=== PATIENT | female | born 1980 | race Two or more races ===

== ENCOUNTER → 2024-04-23 09:01 | Outpatient (REF) | payer OTHER, SELFPAY ==
[2024-04-23 10:47] LABS: Estradiol 86.8 pg/ml
== END ==
LOC: REG 09:01
PROVIDERS: FAMILY PHYSICIAN Internal Medicine
DX: Z31.83 Encounter for assisted reproductive fertility procedure cycle (principal)
CPT/HCPCS: 36415; 82670; 84144; 84702

== ENCOUNTER → 2024-04-29 06:26 | Outpatient (REF) | payer OTHER, SELFPAY ==
[2024-04-29 08:00] LABS: Estradiol 78.8 pg/ml
== END ==
LOC: REG 06:26
PROVIDERS: FAMILY PHYSICIAN Internal Medicine
DX: Z31.83 Encounter for assisted reproductive fertility procedure cycle (principal)
CPT/HCPCS: 36415; 82670; 84144; 84702

== ENCOUNTER → 2025-01-09 15:21 | Outpatient (REF) | payer OTHER, SELFPAY | LOC: WDC 15:21 | PROVIDERS: ATTENDING PHYSICIAN Family Medicine | DX: Z12.31 Encounter for screening mammogram for malignant neoplasm of breast (principal) | CPT/HCPCS: 77063; 77067 ==

== ENCOUNTER 2025-01-20 11:02 | Emergency (ER) | payer OTHER, SELFPAY ==
[2025-01-20 11:06] VITALS: BP 134/90
[2025-01-20 11:49] LABS: % Eosinophils 0.6 % (0-6); % Immature Granulocytes 0.2 % (0-0.5); % Lymphocytes 37.1 % (20.5-51.1); % Monocytes 4.4 % (1.7-9.3); % Neutrophils 56.7 % (42.2-75.2); Absolute Basophils 0.1 10^3/uL (0-0.2); Absolute Lymphocytes 1.9 10^3/uL (1.2-3.4); Absolute Monocytes 0.2 10^3/uL (0.1-0.6); Hematocrit 39.9 % (37.0-47.0); Hemoglobin 13.7 g/dL (12.0-16.0); Mean Corp Hgb Conc. 34.3 g/dL (33.0-37.0); Mean Corpuscular Hgb 30.2 pg (27.0-31.0); Mean Corpuscular Volume 87.9 fL (81.0-99.0); Mean Platelet Volume 8.9 fL (7.4-10.4); Nucleated Red Blood Cells % 0 %; Platelet Count 284 10^3/uL (130-400); Red Blood Cell Count 4.54 10^6/uL (4.20-5.40); Red Cell Dist. Width 12.5 % (11.5-14.5); White Blood Cell Count 5.2 10^3/uL (4.8-10.8)
[2025-01-20 12:05] LABS: HCG, Serum Qualitative Screen Negative
[2025-01-20 12:10] LABS: ALT (SGPT) 18 U/L (0-35); AST (SGOT) 21 U/L (14-36); Albumin 5.2 g/dl (3.5-5.0); Alkaline Phosphatase 54 U/L (38-126); Blood Urea Nitrogen 13 mg/dl (7-17); Calcium 9.7 mg/dl (8.4-10.2); Carbon Dioxide 19 mmol/L (22-30); Chloride 105 mmol/L (98-107); Glucose 172 mg/dl (70-99); Potassium 4.8 mmol/L (3.5-5.1); Sodium 136 mmol/L (135-145); Total Bilirubin 0.9 mg/dl (0.2-1.3); Total Protein 8.3 g/dl (6.3-8.2); eGFR > 60.00
--- NOTE | 2025-01-20 12:46 | ED.GENMED ---
History of Present Illness
General
Chief Complaint: Numbness
Source: patient
Time Seen by Provider: 01/20/25 12:16
History of Present Illness
History of Present Illness:
This patient is a 44-year-old female presents emergency department from the staff auditor office. She states that she has been having intermittent episodes of dermatitis/eczema, waxing and waning, usually relieved with steroids. She was seeing the
staff auditor to have this worked up. She states that around 10:30 AM she received a panel of different antigens placed on her back. As she lay prone, about 15 minutes later she developed a 'strange sensation' on the right side of her face as well as
her right arm and less so on the left arm. She said it felt a little bit like 'Novocain'. This then started to make her feel anxious. She noted that her mouth felt dry and had a 'weird taste'. She is feeling better now although symptoms are not
fully resolved. She denies associated change in speech, lip or tongue swelling, trouble swallowing, chest pain, dyspnea, vomiting. She did have slight nausea which she thinks was related to the anxiety, lasting about a minute and then fully
resolved. Patient has never had an experience like this before.
Past History
Past History
ED Past Medical History: Other (Migraines)
Social History
Tobacco: Non-smoker
Alcohol: Occasional
Drug: None
Phy Exam
Physical Exam
Physical Exam:
GENERAL: Alert , in no apparent distress
EYE: pupils equal and reactive
NECK: Supple, no significant adenopathy.
ENT: o/p clr, mmm, no trismus/drool, voice clear.
CARDIAC: Regular rate and rhythm .
LUNGS: Clear breath sounds bilaterally, no acute respiratory distress, no wheezes/rales/rhonchi
ABDOMEN: Soft, without focal tenderness, no r/g, no cvat
NEUROLOGICAL: Alert and oriented, no focal neuro deficits
SKIN: Warm and dry, skin intact. No hives noted.
MUSCULOSKELETAL: No edema, well perfused.
PSYCH: Normal and appropriate interaction.
Course
Orders/Labs/Results
Orders:
Orders
01/20/25 11:11
Test Result ONCE
01/20/25 11:29
Complete Blood Count/With Diff Urgent
Comprehensive Metabolic Panel Urgent
HCG, Serum Qualitative Screen Urgent
Abnormal Lab Results
01/20/25
11:29
Carbon Dioxide 19 L mmol/L
(22-30)
Glucose 172 H mg/dl
(70-99)
Total Protein 8.3 H g/dl
(6.3-8.2)
Albumin 5.2 H g/dl
(3.5-5.0)
01/20/25 11:29
01/20/25 11:29
Vital Signs
Initial and Last Documented VS:
Initial Vital Signs
Temp Pulse Resp BP Pulse Ox
97.6 F 89 18 134/90 100
01/20/25 11:06 01/20/25 11:06 01/20/25 11:06 01/20/25 11:06 01/20/25 11:06
Last Documented Vital Signs
Temp Pulse Resp BP Pulse Ox
97.6 F 89 18 134/90 100
01/20/25 11:06 01/20/25 11:06 01/20/25 11:06 01/20/25 11:06 01/20/25 11:06
*Critical Care Note
Total Time (30-74mins, 75-104mins- exclusive of procedures): Not Applicable
Update Note
Update Note:
Patient presents to the Emergency Department with ____strange sensation after an antigen test
Number and Complexity of Problems Addressed at the Encounter
� Chronic conditions affecting care:
� Acute Exacerbation and/or Progression of Chronic Illness:
� Differential Diagnosis includes: But not limited to allergic reaction, electrolyte disorder, anxiety, etc. etc.
Amount and/or Complexity of Data to be Reviewed and Analyzed
� I performed an independent evaluation of and my interpretation is:
EKG:
CT:
Xrays:
Laboratory Studies: Reviewed by me, generally unremarkable, mild hyperglycemia
Other:
� Review of other/old records reveals:
� Clinical information was obtained by an independent historian:
� Prescriptions/Medications Considered but not given:
� Further testing considered but not performed:
Risk of Complications and/or Morbidity or Mortality of Patient Management
� Social determinants of health affecting care:
� Discussion with other providers (PCP, Hospitalists, Consultants, etc):
� Escalation of care including admission/observation vs risk of discharge considered: Patient advised about her lab results and given copy of. She is now going to proceed to the staff auditor office as she is requesting a variety of
other test to be run today. Suspect patient had a mild allergic reaction. No physical findings at this time, no indications to suggest impending anaphylaxis. Discussed with patient importance of follow-up and reasons to return to the ER.
ED Attending Note
-
Portions of this chart may have been created with voice recognition software.� Occasional wrong word or��sound alike� substitutions may have occurred due to the inherent limitations of voice recognition software.
Discharge Plan
Departure
Patient Disposition: Home (Routine Discharge)
Date of Disposition: 01/20/25
Time of Disposition: 13:10
Patient with high blood pressure during this ER visit?: Yes
Condition: Good
Discharge Problem:
Numbness
Instructions: BLOOD PRESSURE
Referrals:
Laura Toney MD [Family Provider] -
Activity Restrictions/Additional Instructions:
PLEASE PROCEED TO THE RESERVE OPERATOR NOW. IF YOU DEVELOP LIP/TONGUE SWELLING, TROUBLE SWALLOWING, CHANGE IN VOICE/VISION, WEAKNESS, FEVER, CHEST PAIN, TROUBLE BREATHING, DIZZINESS, OR OTHER WORRISOME SIGNS, GO TO THE ER IMMEDIATELY!
Interventions
Interventions:
*Risk Screen - Suicide Last Done: 01/20/25 11:06
*General Assessment Last Done: 01/20/25 11:06
*Neglect/Abuse Screening Last Done: 01/20/25 11:06
ED- Fall Risk Assessment Last Done: 01/20/25 11:43
ED- Cardiac Assessment Last Done: 01/20/25 11:43
ED- Neurological Assessment Last Done: 01/20/25 11:43
ED- Pulmonary Assessment Last Done: 01/20/25 11:43
ED-Skin Assessment Last Done: 01/20/25 11:43
Discharge Date and Time
Print Language: [place]
== END 2025-01-20 13:34 | disposition home or self-care (01) ==
LOC: EMR 11:02
PROVIDERS: Emergency Medicine; EMERGENCY PHYSICIAN Emergency Medicine; FAMILY PHYSICIAN Family Medicine
DX: R20.0 Anesthesia of skin (principal); R03.0 Elevated blood-pressure reading, without diagnosis of hypertension
CPT/HCPCS: 99283; 80053; 84703; 85025

== ENCOUNTER → 2025-01-20 14:51 | Outpatient (REF) | payer OTHER, SELFPAY ==
[2025-01-20 16:34] LABS: C-Reactive Protein < 5.00 mg/L (0.0-10.00)
[2025-01-22 22:58] LABS: IgE 4 kU/L (<=214)
== END ==
LOC: REG 14:51
PROVIDERS: ATTENDING PHYSICIAN Family Medicine; FAMILY PHYSICIAN Physician Assistant Medical
DX: T78.40XA Allergy, unspecified, initial encounter (principal); R43.2 Parageusia; R42 Dizziness and giddiness; R20.2 Paresthesia of skin
CPT/HCPCS: 36415; 82785; 83520; 86140